=== PATIENT | male | born 1965 | race Caucasian/White ===

== ENCOUNTER 2017-01-13 15:40 | Inpatient (IN) | payer MEDICAID ==
[2017-01-13] MEDS ORDERED: HYDROmorphone 1 mg/mL 1mL Syr IVP PRN (16:58)
[2017-01-13] MEDS ORDERED: Hydrocodone/APAP 5mg/325mg Tab PO PRN (16:58)
[2017-01-13] MEDS ORDERED: Pneumococcal Vaccine 0.5 mL Vial IM ONE (17:10)
[2017-01-13 17:41] LABS: HEMATOCRIT 35.6 % (39.0-49.0); HEMOGLOBIN 12.4 gm/dL (13.2-17.3)
[2017-01-13 17:50] VITALS: BP 135/82
[2017-01-13] MEDS: Sodium Chloride 0.9% 1,000 ML IV SCH (20:13)
[2017-01-14] MEDS: Sodium Chloride 0.9% 1,000 ML IV SCH ×2 (05:09→17:29)
[2017-01-14 06:03] LABS: HEMOGLOBIN 11.5 gm/dL (13.2-17.3); MEAN CELL VOLUME 84.9 fl (80-99); MEAN CORPUSCULAR HEMOGLOBIN 29.7 pg (26.0-30.0); MEAN PLATELET VOLUME 8.6 fl; RED BLOOD COUNT 3.88 Mil/cmm (4.30-5.70); RED CELL DISTRIBUTION WIDTH 13.5 % (11.5-20.0); WHITE BLOOD COUNT 7.1 Th/cmm (4.8-10.8)
[2017-01-14 06:18] LABS: ALB/GLOB RATIO 0.9 (1.0-1.8); ALKALINE PHOSPHATASE 95 U/L (34-104); ANION GAP 8.2 (7.0-16.0); BILIRUBIN,TOTAL 1.3 mg/dL (0.3-1.0); BUN - UREA NITROGEN 18 mg/dL (7-25); CARBON DIOXIDE 27.7 mEq/L (21.0-31.0); CHLORIDE 108 mEq/L (98-107); CREATININE - SERUM 0.6 mg/dL (0.7-1.3); GLUCOSE 120 mg/dL (70-105); POTASSIUM SERUM 3.9 mEq/L (3.5-5.1); SGOT 20 U/L (13-39); SGPT/ALT 19 U/L (7-52); SODIUM SERUM 140 mEq/L (136-145)
[2017-01-14 09:27] LABS: PLATELET COUNT 41 Th/cmm (150-400)
[2017-01-14 09:29] LABS: BAND NEUTROPHILE 1 % (0-10); EOSINOPHIL 2 % (0-5); NEUTROPHILS 75 % (40-80); TOTAL CELLS COUNTED 100
[2017-01-14 09:30] LABS: PLATELET ESTIMATE DECREASED PLATELETS (NORMAL); PLATELET MORPHOLOGY NORMAL (NORMAL)
--- NOTE | 2017-01-14 18:41 | History & Physical ---
HISTORY OF PRESENT ILLNESS: This patient was admitted from the [facility] where he was admitted for GI bleed. According to history obtained from him and his fiancee at the bedside that he says that he on the night of admission he had his general usual but in the middle of the night he woke up and felt queasy his stomach. He felt nauseous, went to the bathroom and has vomiting, which was blood and he had 3 times bloody vomiting. No bloody diarrhea or delisa blood in the stool. Has had stomach pain and some discomfort. He denies of any feeling dizzy, lightheaded, headache, blurry vision, fever, chills and rigors. He also denies of taking any iupz-kwc-wopofwy medications. PAST MEDICAL HISTORY: Has hepatitis C and he also has history of psoriasis and has history of hypertension and diabetes mellitus type 2. No history of coronary artery disease or any other medical problem. PERSONAL HISTORY: He has history of alcohol abuse and possible drug abuse also. Nonsmoker. ALLERGIES: None known. MEDICATIONS: Ordered in the chart. PHYSICAL EXAMINATION: GENERAL: He is a 51-year-old male fully alert and oriented, but not in acute distress. VITAL SIGNS: Stable. Temperature is normal, blood pressure 143/91, now blood pressure is 108-87 range, respirations 18 and O2 saturation on room air is 98%. HEENT: Head is normocephalic. Eyes: Conjunctivae normal. Pupils are equal and reacting to light. ENT looks normal. NECK: Supple. JVP is flat. No lymphadenopathy. CHEST: Equal bilaterally. No chest wall tenderness. LUNGS: Clinically cleared. CARDIOVASCULAR SYSTEM: PMI not palpable. Heart sounds are normal. No gallop or murmur is appreciated. ABDOMEN: Upper abdomen is soft with tenderness present in the epigastric area, some discomfort in the right upper quadrant also. Bowel sounds are present. DIABETES TERRITORY MANAGER: Grossly normal. EXTREMITIES: No edema, no cyanosis and no clubbing. Peripheral pulsations are equal bilaterally. SKIN: Dermatologically, he has psoriasis patches over the elbows and the knee areas. LABORATORY DATA: Lab work was evaluated. Hemoglobin is getting stabilized and then on arrival it was 12.4, hemoglobin 35.6, now has dropped to 11.5 and 33.6. IMPRESSION: Acute GI bleeding most likely upper GI. Etiology undetermined at this time. The psoriasis, hypertension, diabetes mellitus type 2 and history of hepatitis C. PLAN: We will check the H and H again in the morning, continue with control of nausea and vomiting and monitor closely for further GI bleed. Control hypertension, control the heart rate and control diabetes mellitus. Discussed with Dr. Maya Phillip who has seen the patient already and will arrange the EGD in the morning. Further workup and management after the initial workup and diagnosis. [facility]# [id number] [facility]
--- NOTE | 2017-01-14 19:48 | Admit Criteria Form ---
Admit Criteria Forms - Admit Criteria Diagnosis: GASTROINTESTINAL BLEEDING, UPPER Clinical Indications for Admission to Inpatient Care ( Place 'X' for any and all applicable criteria): Admission is indicated for ANY ONE of the following(1)(2)(3)(4)(5)(6): [X]I. Active bleeding (eg, fresh voluminous blood in emesis or nasogastric aspirate) [ ]II. Associated conditions requiring hospitalization (eg, perforation, obstruction from ulcer) [ ]III. Inpatient admission required rather than observation care (Also use Gastrointestinal Bleeding, Upper: Observation Care as appropriate) because of ANY ONE of the following: [ ]a) Hemodynamic instability that is severe or persistent [ ]b) Anemia requiring inpatient admission as indicated by ALL of the following: [ ]1) Presence of significant clinical finding indicated by ANY ONE of the following: [ ]A. Tachycardia for age [ ]B. Orthostatic vital sign changes [ ]C. Cognitive impairment [ ]D. Heart failure [ ]E. Chest pain [ ]F. Exertional dyspnea [ ]G. Other findings suggesting inadequate perfusion (eg, peripheral or myocardial ischemia, end organ dysfunction) [ ]2) Initial (eg, emergency department, observation care) treatment with transfusion or volume replacement is judged inappropriate (due to severity of the finding) or has been ineffective [ ]c) Severe pain requiring acute inpatient management [ ]d) High-risk low platelet count [ ]e) IV fluid to replace significant ongoing losses (greater than 3 L/m2 per day) [ ]f) Immediate inpatient surgery [ ]g) Other condition, treatment or monitoring requiring inpatient admission [ ]IV. Severe liver disease (eg, cirrhosis) [ ]V. Significant active comorbid disease [ ]. Anticoagulation therapy [ ]VII. High-risk endoscopic features (arterial bleeding, adherent clot, nonbleeding visible vessel, varices, flat red spots, ulcer size greater than 2 cm, or portal hypertensive gastropathy) [ ]VIII. Previous aortic graft placement or known aortic aneurysm [ ]IX. Coagulopathy [ ]X. Syncope Extended stay beyond goal length of stay may be needed for(1)(2): [ ]a) Emergency surgery [ ]b) Varices [ ]c) Coagulation abnormalities [ ]d) Recurrent, obscure, or persistent bleeding or continued Hemodynamic instability [ ]e) Associated conditions requiring surgery (eg, perforated gastric ulcer, gastric outlet obstruction) [ ]f) Active comorbidities (eg, renal insufficiency, heart failure, pre- existing liver disease) The original [facility] [employer] content created by [facility] [employer] has been revised. The portions of the content which have been revised are identified through the use of italic text or in bold, and [facility] has neither reviewed nor approved the modified material. All other unmodified content is copyright [facility] [employer]. Please see references footnoted in the original [facility] [employer] edition 2016 Admit Criteria Met?: Yes
--- NOTE | 2017-01-14 22:15 | Consultation ---
REASON FOR CONSULTATION: GI bleed. HISTORY OF PRESENT ILLNESS: This consult was obtained through the courtesy of Dr. Yanez for this 51-year-old with history of hypertension presenting to the hospital because of GI bleed. Apparently, the patient started vomiting coffee-ground material. He presented to [facility] and was sent here for further evaluation. The patient now feels much better, no more vomiting. He wants to eat. The patient denies any melena and no weight loss. PAST MEDICAL HISTORY: Hypertension and back problem. PAST SURGICAL HISTORY: He had some accident many years ago. SOCIAL HISTORY: Smokes socially. Used to drink in the past. Denies heavy drinking, but not anymore, non-IV drug abuser. FAMILY HISTORY: Noncontributory. ALLERGIES: No known drug allergies. MEDICATIONS: For high blood pressure he was started on Protonix. REVIEW OF SYSTEMS: No weight loss, no melena and no abdominal pain. PHYSICAL EXAMINATION: GENERAL: The patient is awake, oriented to self, place and time, in no acute distress. VITAL SIGNS: Blood pressure is 120/62, heart rate 84, respiratory rate 18 and temperature is 97.0. HEAD AND NECK: Pupils are reactive to light and accommodation. Extraocular muscles are intact. Sclerae are anicteric. Conjunctivae not pale. Oral cavity: No lesion. NECK: Supple. No jugular venous distention and no carotid bruit or lymph node. CHEST: Good respiratory movements. LUNGS: Clear to auscultation. CARDIOVASCULAR SYSTEM: Regular rate and rhythm. No murmur or gallop. ABDOMEN: Obese and soft with positive bowel sounds. EXTREMITIES: Lower extremities, no edema. CENTRAL NERVOUS SYSTEM: Grossly nonfocal. LABORATORY DATA: Hemoglobin is 11.5. IMPRESSION: This 52-year-old with GI bleed. ASSESSMENT AND PLAN: GI bleed, most probably esophagitis or gastritis or peptic ulcer disease or Valerie-Givens tear. RECOMMENDATIONS: 1. Continue his PPI. 2. Offered the patient endoscopy in the morning and he declined. He wants to go home. He claims he is doing much better now, so we will advance his diet to 2-gram sodium diet and if he stays, we will recheck his H and H in the morning and then endoscopy and if he elected to leave, he was advised to follow as an outpatient to schedule an endoscopy later on, also the patient has never had a colonoscopy. We will advise he will need one in the future. Other medical problems such as hypertension as per Dr. Yanez. Thank you, Dr. Yanez for allowing me to participate in the care of this patient. If you have any further questions, please let me know. JOB# [id number]
[2017-01-15] MEDS: Sodium Chloride 0.9% 1,000 ML IV SCH ×3 (02:46→17:04)
[2017-01-15 07:02] LABS: HEMATOCRIT 31.7 % (39.0-49.0); HEMOGLOBIN 11.3 gm/dL (13.2-17.3); MEAN CELL VOLUME 84.6 fl (80-99); MEAN CORPUSCULAR HEMOGLOBIN 30.1 pg (26.0-30.0); MEAN CORPUSCULAR HGB CONC 35.6 pg (28.0-36.0); MEAN PLATELET VOLUME 9.2 fl; PLATELET COUNT 36 Th/cmm (150-400); RED BLOOD COUNT 3.75 Mil/cmm (4.30-5.70); RED CELL DISTRIBUTION WIDTH 13.2 % (11.5-20.0)
[2017-01-15 07:21] LABS: INR 1.13 (0.5-1.4); PROTHROMBIN TIME (TEST) 11.3 SECONDS (9.5-11.5)
[2017-01-15 07:27] LABS: WHITE BLOOD COUNT 5.1 Th/cmm (4.8-10.8)
[2017-01-15 08:26] LABS: BAND NEUTROPHILE 1 % (0-10); EOSINOPHIL 3 % (0-5); NEUTROPHILS 71 % (40-80); TOTAL CELLS COUNTED 100
[2017-01-15 08:28] LABS: PLATELET ESTIMATE DECREASED PLATELETS (NORMAL); PLATELET MORPHOLOGY NORMAL (NORMAL)
[2017-01-15 08:29] LABS: ANISOCYTOSIS 1+
--- NOTE | 2017-01-15 09:44 | Diagnostic Imaging Report ---
Portable chest x-ray HISTORY: Pneumonia The heart size is difficult to assess with portable technique and a poor inspiration. No focal pulmonary processes are seen. No hilar or mediastinal abnormalities. IMPRESSION: 1. No acute focal pulmonary processes
[2017-01-15] MEDS ORDERED: Lidocaine 2% Gel 5 mL TP ONE (12:00)
--- NOTE | 2017-01-15 15:17 | Operative Report ---
PROCEDURE PERFORMED: 1. Esophagogastroduodenoscopy with band ligation. 2. Esophagogastroduodenoscopy with biopsy. INDICATION FOR PROCEDURE: Upper GI bleed. CONSENT: Informed consent was obtained from the patient after outlining benefits and risks including infection, bleeding, perforation, . ANESTHESIA USED: Propofol given by anesthesiologist. PREOPERATIVE DIAGNOSIS: Upper gastrointestinal bleed. POSTOPERATIVE DIAGNOSES: 1. Huge esophageal varices, 4 columns, 3+ status post band ligation x 7. 2. Portal hypertensive gastropathy. 3. Gastritis. DESCRIPTION OF PROCEDURE: The patient was placed in left lateral position. Upper Olympus endoscope was introduced into the mouth and advanced to the esophagus, which was intubated under direct visualization. Esophageal mucosa was examined on the way down, it showed 4 columns of 2-3+ esophageal varices. The distal end showed some fibrinous plugs at the distal end, possibly source of bleeding. Scope was advanced further down to the stomach. There was portal hypertensive gastropathy with mosaic pattern, mucosa and congested mucosa. Scope was advanced through the pylorus to the duodenum where the bulb and second part were examined and they were both normal. Scope was withdrawn to the stomach and retroflexed to examine the cardia and fundus. It showed portal hypertensive gastropathy as well. Scope was then straightened. Biopsies were taken from the antrum for CLOtest. Scope was then withdrawn to the esophagus where I examined the varices again, then we decided to band. So, then scope was withdrawn and it was equipped with the 7 shooter. Scope was inserted again and several those bands were applied to the varices. No bleeding was noted. Scope was then withdrawn. The patient tolerated the procedure well. There were no immediate postoperative complications. RECOMMENDATIONS: 1. Follow up CLOtest. 2. Treat H. pylori if positive. 3. PPI. 4. Propranolol. 5. Repeat banding in a month. Thank you, Dr. Yanez for allowing me to participate in the care of the patient. If you have any further questions, please let me know. JOB# [id number] SARANYA
--- NOTE | 2017-01-16 03:04 | Progress Notes ---
SUBJECTIVE: The patient is awake and alert. No further reports of nausea, vomiting or vomiting blood. The patient is on IV fluids. OBJECTIVE: VITAL SIGNS: Temperature 98.5, pulse 75, blood pressure 145/85, respirations 19, pulse ox 95% on room air. CARDIOVASCULAR: S1 and S2. RESPIRATIONS: Clear. ABDOMEN: Soft. Positive bowel sounds. LABORATORY DATA: Hematology: WBC 5.1, hemoglobin 11.3, hematocrit per labs, platelet count of 36. PT 11.3, INR 1.13. The patient had an EGD done today, which showed huge esophageal varices, 4 columns, 3+ status post band ligation x 7, portal hypertensive gastropathy and gastritis. ASSESSMENT: 1. Esophageal varices. 2. Portal hypertensive gastropathy. 3. Gastritis. 4. Status post esophagogastroduodenoscopy with band ligation biopsy. 5. Acute gastrointestinal bleed (resolved). 5. Psoriasis. 6. Hypertension. 7. Diabetes mellitus type 2. 8. Hepatitis C. 9. Anemia. 10. Thrombocytopenia. PLAN: Continue current medication and treatment. Obtain labs in a.m. convention services manager for discharge planning. Further consults. JOB# [id number] SARANYA
[2017-01-16 06:04] LABS: ANION GAP 8.6 (7.0-16.0); BUN - UREA NITROGEN 9 mg/dL (7-25); BUN/CREATININE RATIO 12.9; CALCIUM SERUM 8.4 mg/dL (8.6-10.3); CARBON DIOXIDE 27.1 mEq/L (21.0-31.0); CHLORIDE 106 mEq/L (98-107); CREATININE - SERUM 0.7 mg/dL (0.7-1.3); GLUCOSE 151 mg/dL (70-105); POTASSIUM SERUM 3.7 mEq/L (3.5-5.1); SODIUM SERUM 138 mEq/L (136-145)
[2017-01-16 06:07] LABS: HEMATOCRIT 31.9 % (39.0-49.0); HEMOGLOBIN 11.2 gm/dL (13.2-17.3); MEAN CELL VOLUME 85.8 fl (80-99); MEAN CORPUSCULAR HEMOGLOBIN 30.2 pg (26.0-30.0); MEAN CORPUSCULAR HGB CONC 35.3 pg (28.0-36.0); MEAN PLATELET VOLUME 9.1 fl; PLATELET COUNT 34 Th/cmm (150-400); RED BLOOD COUNT 3.72 Mil/cmm (4.30-5.70); RED CELL DISTRIBUTION WIDTH 13.4 % (11.5-20.0); WHITE BLOOD COUNT 4.8 Th/cmm (4.8-10.8)
[2017-01-16 09:18] LABS: BAND NEUTROPHILE 2 % (0-10); EOSINOPHIL 1 % (0-5); NEUTROPHILS 62 % (40-80); TOTAL CELLS COUNTED 100
[2017-01-16 09:19] LABS: ANISOCYTOSIS 1+; PLATELET ESTIMATE DECREASED PLATELETS (NORMAL); PLATELET MORPHOLOGY NORMAL (NORMAL); POLYCHROMASIA 1+
--- NOTE | 2017-01-18 15:01 | Discharge Summary ---
DISCHARGE DIAGNOSES: 1. Esophageal varices. 2. Portal hypertensive gastropathy. 3. Gastritis. 4. Status post esophagogastroduodenoscopy with band ligation and biopsy. 5. Acute gastrointestinal bleed (resolved). 5. Psoriasis. 6. Hypertension. 7. Diabetes mellitus type 2. 8. Hepatitis C. 9. Anemia. 10. Thrombocytopenia. HOSPITAL COURSE: The patient is a 51-year-old male who has been transferred from [facility] ED. The patient was transferred from the ED for GI bleed. The patient was diagnosed with acute GI bleed (upper), psoriasis, hypertension, diabetes mellitus type 2 and hepatitis C. ____ GI consultation taken from Dr. Phillip, who recommended the patient to be put on proton pump inhibitor. The patient planned for EGD. The patient underwent EGD on 01/15/2017. Results of the EGD showed esophageal varices, portal hypertensive gastropathy and gastritis. RECOMMENDATIONS: From GI, patient to be discharged home on propranolol and PPI. The patient will be discharged home on 01/16/2017. The patient will be given home medications. The patient will be given prescription for propranolol and Protonix. The patient is recommended to follow up with the PCP in 1 weeks' time. The patient is advised to contact PCP to refer the patient to ____ GI for followup on the esophageal varices in 1 months' time. JOB# [id number]
== END 2017-01-16 11:05 | DRG 229 ==
LOC: MSI 15:40 → TELE 19:50 → MSI 01-15 18:27
PROVIDERS: ADMIT Preventive Medicine Preventive Medicine/Occupational Environmental Medicine; ATTEND Preventive Medicine Preventive Medicine/Occupational Environmental Medicine
PROC: 06L34CZ Occlusion of Esophageal Vein with Extraluminal Device, Percutaneous Endoscopic Approach (ICD-10-PCS; principal; 2017-01-15)
PROC: 0DB68ZX Excision of Stomach, Via Natural or Artificial Opening Endoscopic, Diagnostic (ICD-10-PCS; 2017-01-15)
DX: I85.01 Esophageal varices with bleeding (principal); K76.6 Portal hypertension; D69.6 Thrombocytopenia, unspecified; E44.0 Moderate protein-calorie malnutrition; I10 Essential (primary) hypertension; E11.9 Type 2 diabetes mellitus without complications; D64.9 Anemia, unspecified; B19.20 Unspecified viral hepatitis C without hepatic coma; L40.9 Psoriasis, unspecified; F10.10 Alcohol abuse, uncomplicated; K31.89 Other diseases of stomach and duodenum; K29.70 Gastritis, unspecified, without bleeding; F17.210 Nicotine dependence, cigarettes, uncomplicated
CPT/HCPCS: 36415-UA; 71010-TC; 80048-TC; 80053-TC; 83036-90; 83735-TC; 85007-TC; 85014-TC; 85018-TC; 85027-TC; 85610-TC; 86850-TC; 86900-TC; 86901-TC; 87338-TC; 93005; C9113; J2704; J7030; Z7610